=== PATIENT | male | born 1965 | race Caucasian/White ===

== ENCOUNTER 2019-02-28 16:08 | Emergency (ER) | payer SELFPAY ==
[~2019-02-28] VITALS: Ht 172.7 cm; Wt 72.6 kg
[2019-02-28 16:15] VITALS: BP 137/92
--- NOTE | 2019-02-28 16:27 | NUR ---
ED Nurse Note: Pt was brought in by ambulance from street. Pt found with ALOC, admitted to drinking alcohol. Pt can follow commands, but is resistant to questions and wants to leave the hospital. Respirations are even and unlabored on room air. Addendum: 02/28/19 at 1721 by BDUTTON [email or web address]
--- NOTE | 2019-02-28 16:38 | Diagnostic Imaging Report ---
Indication: Dyspnea Comparison: None A single view chest radiograph was obtained. Findings: Cardiomediastinal appearance is within normal limits for age. The lungs are clear. Pulmonary vascularity is appropriate. The diaphragmatic contour is smooth and costophrenic angles are sharp. No pleural effusions are identified. The bones are unremarkable. Impression: No acute findings
[2019-02-28 17:02] LABS: BASOPHILS % (AUTO) 1.2 % (0.0-2.0); HEMATOCRIT 46.1 % (42.0-52.0); HEMOGLOBIN 16.3 G/DL (14.2-18.0); LYMPHOCYTES % (AUTO) 30.5 % (20.0-45.0); MEAN CORPUSCULAR VOLUME 90 FL (80-99); MONOCYTES % (AUTO) 5.6 % (1.0-10.0); NEUTROPHILS % (AUTO) 58.8 % (45.0-75.0); PLATELET COUNT 144 K/UL (150-450); RED BLOOD COUNT 5.15 M/UL (4.70-6.10); RED CELL DISTRIBUTION WIDTH 10.4 % (11.6-14.8); WHITE BLOOD COUNT 5.8 K/UL (4.8-10.8)
[2019-02-28 17:17] LABS: ANION GAP 11 mmol/L (5-15); BLOOD UREA NITROGEN 7 mg/dL (7-18); CALCIUM 8.3 MG/DL (8.5-10.1); CARBON DIOXIDE 30 MMOL/L (21-32); CHLORIDE 105 MMOL/L (98-107); CREATININE 0.8 MG/DL (0.55-1.30); POTASSIUM 3.3 MMOL/L (3.5-5.1); SODIUM 146 MMOL/L (136-145)
[2019-02-28 17:24] LABS: ALANINE AMINOTRANSFERASE 58 U/L (12-78); ALBUMIN 3.8 G/DL (3.4-5.0); ALBUMIN/GLOBULIN RATIO 1.1 (1.0-2.7); ALKALINE PHOSPHATASE 83 U/L (46-116); ASPARTATE AMINO TRANSFERASE 41 U/L (15-37); BILIRUBIN,TOTAL 0.3 MG/DL (0.2-1.0)
--- NOTE | 2019-02-28 17:26 | NUR ---
ED Nurse Note: Pt back from radiology
[2019-02-28 17:55] VITALS: BP 134/89
--- NOTE | 2019-02-28 18:26 | Diagnostic Imaging Report ---
Indication: Headache Technique: Contiguous 5 mm thick transaxial imaging of the head obtained in a Siemens Sensation [address] scanner. Soft tissue and bone windows generated. Automatic Exposure Control was utilized. Total Dose length Product (DLP): 1583.[address] Dose Index Volume (CTDIvol): 62.7 mGy Comparison: none Findings: The size and configuration of the cortical sulci, basal cisterns, and ventricles are within normal limits for age. There is no mass effect, midline shift, or edema identified. There is no evidence of acute hemorrhage or abnormal intra-axial or extra-axial fluid collections. The bones and soft tissues are unremarkable. There is extensive opacification of the visualized paranasal sinuses especially the ethmoid and maxillary sinuses. Impression: No mass effect, edema or acute bleed. Sinusitis [facility] has communicated the preliminary results to the Emergency Department. Their findings are largely concordant with this report. The CT scanner at [facility] is accredited by the [employer] and the scans are performed using dose optimization techniques as appropriate to a performed exam including Automatic Exposure control.
--- NOTE | 2019-02-28 18:30 | NUR ---
ED Nurse Note: urine sent to lab
[2019-02-28 18:46] LABS: APPEARANCE,URINE CLEAR; BILIRUBIN, URINE NEGATIVE (NEGATIVE); COLOR,URINE PALE YELLOW; GLUCOSE, URINE (UA) NEGATIVE (NEGATIVE); KETONES,URINE NEGATIVE (NEGATIVE); LEUKOCYTE ESTERASE ,URINE NEGATIVE (NEGATIVE); NITRITE,URINE NEGATIVE (NEGATIVE); PH,URINE 6.5 (4.5-8.0); PROTEIN,URINE 2+ (NEGATIVE); UROBILINOGEN,URINE NORMAL MG/DL (0.0-1.0)
--- NOTE | 2019-02-28 19:18 | NUR ---
ED Nurse Note: Report given to AMISH Ramirez. Pt in stable condition. Plan of care endorsed.
[2019-02-28 20:00] VITALS: BP 147/82
--- NOTE | 2019-02-28 20:34 | Emergency Room Report ---
History of Present Illness General Chief Complaint: Alcohol Intoxication Source: EMS Present Illness HPI 53-year-old male with no known significant past medical history brought in by paramedics due to alcohol intoxication. Patient with a corner street and altered. Patient denies any head injury at this time. Appears to be flushed and does admit to consumption of a lot of alcohol. Denies drug use, tobacco smoke at this time. Denies any significant past medical history, chest pain, shortness of breath, palpitation, no other associated symptoms. Denies any psychiatric disorder history Allergies: Coded Allergies: No Known Allergies (Unverified , 02/28/19) Patient History Past Medical History: see triage record Past Surgical History: unable to obtain Pertinent Family History: unable to obtain Social History: Reports: alcohol use Immunizations: UTD Reviewed Nursing Documentation: PMH: Agreed; PSxH: Agreed Nursing Documentation-PMH Past Medical History: Deferred Review of Systems All Other Systems: negative except mentioned in HPI Physical Exam Vital Signs Date Time Temp Pulse Resp B/P (MAP) Pulse Ox O2 Delivery O2 Flow Rate FiO2 02/28/19 16:03 98.1 100 18 188/100 (129) 97 Room Air Sp02 EP Interpretation: reviewed, normal General Appearance: other - Alcohol intoxication Head: normocephalic, atraumatic Eyes: bilateral eye normal inspection, bilateral eye PERRL ENT: hearing grossly normal, normal pharynx, no angioedema, normal voice Neck: full range of motion, supple/symm/no masses Respiratory: chest non-tender, lungs clear, normal breath sounds, no wheezing, speaking full sentences Cardiovascular #1: regular rate, rhythm, no edema, no murmur, normal capillary refill Cardiovascular #2: 2+ radial (R), 2+ radial (L) Gastrointestinal: normal bowel sounds, non tender, soft, non-distended, no guarding, no rebound Rectal: deferred Musculoskeletal: back normal, no calf tenderness Neurologic: alert, motor strength/tone normal, sensory intact, responsive, abnormal gait - Unsteady gait due to alcohol intoxication, normal inspection, no focal defects, no Babinski Psychiatric: other - alcohol intoxication Skin: no rash Lymphatic: no adenopathy Medical Decision Making PA Attestation Diagnosis and treatment plans were reviewed and discussed with my supervising physician Dr. Encarnacion Diagnostic Impression: Primary Impression: Alcohol intoxication ER Course 53-year-old male with no known significant past medical history brought in by paramedics due to alcohol intoxication. Patient with a corner street and altered. Patient denies any head injury at this time. Appears to be flushed and does admit to consumption of a lot of alcohol. Denies drug use, tobacco smoke at this time. Denies any significant past medical history, chest pain, shortness of breath, palpitation, no other associated symptoms. Denies any psychiatric disorder history Ddx considered but are not limited to: generalized anxiety disorder, panic attack, depression with psychotic feature, bipolar disorder, drug overdose, alcohol intoxication Vital signs: are WNL, pt. is afebrile H&PE are most consistent with: Alcohol intoxication ORDERS: Psychiatric order set ED INTERVENTIONS: 2 L of NS bolus, Zofran, Pepcid DISCHARGE: At this time pt. is stable for d/c to home. Will provide printed patient care instructions, and any necessary prescriptions. Care plan and follow up instructions have been discussed with the patient prior to discharge. Upon my reassessment after several hours the patient was already at the emergency room patient speaks in full sentences, walks with a steady gait, knows where he is going reports that he wants to go to the airport as he was staying at the hospital here. Patient reports that he will go ahead and call in a taxi for himself. Patient is aware that he has had a lot of alcohol consumption. Reports that his address is in [place] and give his address. Patient stable at time of discharge EKG Diagnostic Results Rate: normal Rhythm: NSR ST Segments: no acute changes Other Impression No acute ST changes CT/MRI/US Diagnostic Results CT/MRI/US Diagnostic Results : Imaging Test Ordered: Head CT no contrast Impression Within normal limits Last Vital Signs Date Time Temp Pulse Resp B/P (MAP) Pulse Ox O2 Delivery O2 Flow Rate FiO2 02/28/19 17:55 98.7 73 16 134/89 96 Room Air Disposition: HOME, SELF-CARE Condition: Stable Referrals: NOT CHOSEN IPA/,REFERRING (PCP) Patient Instructions: Alcohol Intoxication, [id number] Sima Barron Feb 28, 2019 20:34
[2019-02-28 21:30] VITALS: BP 140/76
--- NOTE | 2019-02-28 21:30 | NUR ---
ER DISCHARGE NOTE: Patient is cleared to be discharged per ERMD, pt is aox4, on room air, with stable vital signs. pt was given dc and prescription instructions, pt was able to verbalize understanding, pt id band and iv site removed without complications. pt is able to ambulate with steady gait. pt took all belongings.
[2019-02-28 22:00] VITALS: BP 140/76
== END 2019-02-28 22:01 | disposition home or self-care (01) ==
LOC: EDBD 16:08 → EMR 17:46
DX: F10.129 Alcohol abuse with intoxication, unspecified (principal)
CPT/HCPCS: 36415; 70450; 71045; 80053; 80307; 81001; 84484; 85025; 93005; 96361; 96374; 96375; 99284; G0480; J2405; S0028